=== PATIENT | female | born 1965 | race Caucasian/White ===

== ENCOUNTER → 2023-11-21 | Outpatient (CLI) | payer OTHER, SELFPAY ==
[2023-11-21 14:17] LABS: Absolute Lymphocyte Count 4.46 X10^3/uL (0.83-4.51); Absolute Neutrophil Count 4.3 X10^3/uL (2.0-7.7); Basophil# 0.04 X10^3/uL; Basophil% 0.4 % (0-1); Eosinophil# 0.24 X10^3/uL; Eosinophils% 2.5 % (0-5); Hematocrit 43.4 % (37-47); Hemoglobin 13.6 g/dL (12.0-15.0); Lymphocyte # 4.46 X10^3/ul (0.83-4.51); Lymphocyte % 45.6 % (19-41); Mean Corp Hgb Conc 31.3 g/dL (32-36); Mean Corpuscular Hgb 25.9 pg (27.0-32.0); Mean Corpuscular Volume 82.5 fL (81-99); Mean Platelet Vol. 9.8 fl (6.2-12.0); Monocyte# 0.68 X10^3/uL; NRBC Flagged by Analyzer 0 % (0-5); Neutrophil # 4.33 X10^3/uL (2.7-7.7); Neutrophil % 44.3 % (47-70); Platelet Count 271 K/mm3 (150-450); RBC Distribution Width CV 14.4 % (11.6-14.6); RBC Distribution Width SD 42.5 fl (35.1-43.9); Red Blood Count 5.26 M/mm3 (4.2-5.4); White Blood Count 9.8 K/mm3 (4.4-11.0)
[2023-11-21 14:41] LABS: Vitamin B12 1058 pg/mL (211-911)
[2023-11-21 14:43] LABS: ALB/GLOB Ratio 0.9 RATIO (0.9-2.4); AST(SGOT) 17 U/L (15-37); Alanine Aminotransfer ALT/SGPT 28 U/L (13-56); Albumin, Serum 3.6 g/dL (3.2-5.0); Alkaline Phosphatase 115 U/L (45-117); Anion Gap 8 (5-15); BUN 14 mg/dL (7-18); Calcium,Total 9.6 mg/dL (8.5-10.1); Chloride 107 mmol/L (98-107); Creatinine, Serum 0.74 mg/dL (0.55-1.02); EST Glomerular Filtration Rate 86 mL/min (>60); Est Glom Filt Rate - Afr Amer 104 mL/min (>60); Globulin 3.8 g/dL (2.2-4.2); Glucose 121 mg/dL (74-106); Potassium 3.3 mmol/L (3.5-5.1); Protein, Total 7.4 g/dL (6.4-8.2); Sodium Level 138 mmol/L (136-145)
[2023-11-25 15:08] LABS: Gastrin, Serum 158 pg/mL (0-115); Intrinsic Factor Ab 1.2 AU/mL (0.0-1.1)
== END | disposition home or self-care (01) ==
DX: R10.13 Epigastric pain (principal); K20.90 Esophagitis, unspecified without bleeding
CPT/HCPCS: 36415; 80053; 82607; 82941; 85025; 86340

== ENCOUNTER 2023-12-04 06:00 | Day surgery (SDC) | payer OTHER, SELFPAY ==
[2023-12-04] VITALS (9 sets, daily range): BP systolic 97–144; BP diastolic 54–86; PULSE 81–96; RESP 16; TEMP 36.4–36.7; O2SAT 95–98; BMI 44.6
--- NOTE | 2023-12-04 | GASB_PTH ---
PATIENT: FRANCIA JURADO LOC: EN U#:[id number] AGE/SX: 58/F ROOM: RE12/04/[address]: Dr. Laurent Pike DO : 1965 BED: DIS: 12/04/2023 SPEC #: [id number] RECD: 12/04/23 12:47 STATUS: KEE ALBA #: [id number] RIN: 12/04/23 00:[address]: Laurent Pike DEPT: SURGICAL PATHOLOGY RECD BY: Arun Thompson ENTERED: 12/04/23 12:47 SP TYPE: Gastric Bx OTHR DR: No Primary Care Phys Tissues: A - Gastric mucous membrane B - Duodenum, NOS C - Esophageal mucous membrane D - Ileum, NOS E - Sigmoid colon biopsy Procedures: Special Stain Group I Surgery Specimen Level IV Alcian Blue/PAS (control) HEADER OPERATION: Colonoscopy with biopsy, EGD with biopsy PRE-OP DIAGNOSIS: Esophagitis, dyspepsia TISSUE SUBMITTED: A- Gastric body biopsy, B- Duodenum biopsy, C- Distal esophagus biopsy, D- Terminal ileum biopsy, E- Sigmoid colon biopsy MICROSCOPIC DIAGNOSIS A. Gastric body, biopsy: Chronic gastritis. See comment. B. Duodenum, biopsy: No pathologic change. C. Distal esophagus, biopsy: Gastroesophageal junctional biopsy with mild chronic inflammation. No evidence of goblet cell metaplasia. See comment. D. Terminal ileum, biopsy: No pathologic change. E. Sigmoid colon, biopsy: Focal hyperplastic change. AM. 12/05/2023 COMMENT A. The results of immunohistochemistry for Helicobacter pylori will be reported separately ([id number]). C. Alcian blue/PAS stain with matched control is used in the evaluation of the specimen. MICROSCOPIC DESCRIPTION Slides are reviewed. GROSS DESCRIPTION A. Received in fixative is one container labeled with the patient's name and designated Gastric body biopsy. The specimen consists of multiple irregular fragments of light quiroz soft tissue that in aggregate measure 1.2 x 0.3 x 0.1 cm. The specimen is totally submitted in one cassette. B. Received in fixative is one container labeled with the patient's name and designated Duodenum biopsy. The specimen consists of two irregular fragments of light quiroz soft tissue that in aggregate measure 0.6 x 0.3 x 0.1 cm. The specimen is totally submitted in one cassette. C. Received in fixative is one container labeled with the patient's name and designated Distal esophagus biopsy. The specimen consists of multiple irregular fragments of light quiroz soft tissue that in aggregate measure 0.8 x 0.3 x 0.1 cm. The specimen is totally submitted in one cassette. D. Received in fixative is one container labeled with the patient's name and designated Terminal ileum biopsy. The specimen consists of multiple irregular fragments of light quiroz soft tissue that in aggregate measure 1.0 x 0.3 x 0.1 cm. The specimen is totally submitted in one cassette. E. Received in fixative is one container labeled with the patient's name and designated Sigmoid colon biopsy. The specimen consists of multiple irregular fragments of light quiroz soft tissue that in aggregate measure 1.0 x 0.3 x 0.1 cm. The specimen is totally submitted in one cassette. SJ 12/04/2023 TC:5 CPT:95910b6,97665
[2023-12-04] MEDS: Lactated Ringers 1,000 ML 15 ML IV (06:45)
--- NOTE | 2023-12-04 06:51 | PRE.ANES_ITS ---
ASA Classification* ASA Classification ASA Classification: 3 Assessment & Plan Anesthesia* Anesthesia Assessment Anesthesia Assessment: Discussed sedation and/or anesthesia options, risks, benefits, and alternatives with patient/parents/legal guardian/POA. Questions invited. The patient/parents/legal guardian/POA seems to understand and agrees to proceed with anesthesia plan. Reviewed the physical assessment, medical history, allergy history and patient home medications list prior to surgery/procedure/anesthetic and documented any changes. Performed airway and anesthesia risk assessments. Anesthesia Type Anesthesia Type: MAC (see written pre anesthesia record for full assessment) Anesthesia Focused Assessment* Temperature: 98.0 F Pulse Rate: 96 Blood Pressure: 144/86 Respiratory Rate: 16 Pulse Ox: 95 Airway Assessment Mouth opens: >3 cm Mallampati Score: II Focused Labs Anesthesia Preop lab: CBC WBC 9.8 K/mm3 (4.4-11.0) 11/21/23 13:07 RBC 5.26 M/mm3 (4.2-5.4) 11/21/23 13:07 Hgb 13.6 g/dL (12.0-15.0) 11/21/23 13:07 Hct 43.4 % (37-47) 11/21/23 13:07 Plt Count 271 K/mm3 (150-450) 11/21/23 13:07 CHEMISTRY Potassium 3.3 mmol/L (3.5-5.1) L 11/21/23 13:07 Sodium 138 mmol/L (136-145) 11/21/23 13:07 BUN 14 mg/dL (7-18) 11/21/23 13:07 Creatinine 0.74 mg/dL (0.55-1.02) 11/21/23 13:07 Glucose 121 mg/dL (74-106) H 11/21/23 13:07 COAG Pre-Assessment Diagnosis/Proposed Procedure Planned Operative Procedure(s): COLONOSCOPY/EGD Anesthesia History 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 When Was Last Pacemaker Check QUESTION #4 FULL TEXT: You/Your Family Experience fever (hyperthermia) with Anesthesia Last Oral Intake Last Oral intake: Last Oral Intake NPO since 00:00 12/04/23 06:33 Meds taken in AM with sips of No 12/04/23 06:33 water? Meds patient instructed to take am of surgery PONV PONV - charger operator helper: PONV - charger operator helper Female Yes 12/02/23 13:26 HX of Motion Sickness No 12/02/23 13:26 HX of N/V After Surgery No 12/02/23 13:26 Non-Smoker Yes 12/02/23 13:26 Duration of Surgery greater No 12/02/23 13:26 than 60 minutes Number of Risk Factors 2 12/02/23 13:26 PONV Score Moderate Risk 12/02/23 13:26 Height & Weight Height & Weight: Anesthesia: Height & Weight Height 5 ft 3 in 12/04/23 06:33 Weight: 114.3 kg 12/04/23 06:33 Body Mass Index (BMI) 44.6 12/04/23 06:33 Respiratory Assessment Respiratory Assessment - charger operator helper: Respiratory Tract Infection Hx - charger operator helper Hx Respiratory Tract Infection No 12/02/23 13:26 STOP Sleep Apnea STOP Sleep Apnea - charger operator helper: STOP Sleep Apnea - charger operator helper Hx Hypertension No 12/02/23 13:26 Hx Sleep Apnea No 12/02/23 13:26 CPAP BIPAP Do you snore loudly (louder No 12/02/23 13:26 than talking or can be heard Do you often feel tired/ No 12/02/23 13:26 fatigued/ sleepy during daytime? Has anyone observed you stop No 12/02/23 13:26 breathing during sleep? STOP Results Negative 12/02/23 13:26 QUESTION #5 FULL TEXT : Do you snore loudly (louder than talking or can be heard through closed doors)? 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 Specify any problems Hx of Preganancy in last 3 No 12/02/23 13:26 Months Nurse Filling Out Transfusion VCHRISTIN 12/02/23 13:26 & Questions: Date: 12/02/23 12/02/23 13:26 Time: 13:12/02/23 13:26 Patient unable to answer at this time (ie. confused, unrespo /Reproduction History /Reproductive History - charger operator helper: /Reproductive Hx- charger operator helper Hx Now No 12/02/23 13:26 Gestational Age (in weeks): EDC: Hx Hx Para Hx Section SAB No 12/02/23 13:26 Active Medications Active Medications: Current Medications Generic Name Dose Route Start Last Admin Trade Name Freq PRN Reason Stop Dose Admin Lactated Ringer's 1,000 mls @ 15 mls/hr 12/04/23 06:15 12/04/23 06:45 IV 15 mls/hr .Q48H NAREN Administration PFSH Medical History Wears glasses Post-menopausal History of hiatal hernia History of diverticulitis Gastric reflux Non-smoker Shortness of breath on exertion Chronic cough History of edema Hiatal hernia Home Medications ?Medication ?Instructions ?Recorded ?Last Taken ?Type omeprazole 20 mg capsule,delayed 20 mg PO BID 12/02/23 12/03/23 History release Allergy/AdvReac Type Severity Reaction Status Date / Time No Known Allergies Allergy Verified 12/02/23 13:19 Surgical History Hx of surgical procedure Social History Smoking Status: Never smoker alcohol intake: current alcohol intake frequency: a few times a month substance use type: does not use Review of Systems (Anesthesia) ROS Narrative System reviewed and no additional complaints, except as documented.
--- NOTE | 2023-12-04 07:00 | HP.PCM_ITS ---
History and Physical Date of Admission: 12/04/23 FRANCIA JURADO, is a 58 F who presents to the office today for establishment with [facility] having a history of GERD and prior polypectomy. She reports wanting to change GI providers due to feeling that previous provider was not thorough enough. Reports last EGD was in 2013 for complaints of heartburn; large hiatal hernia and esophagitis were found, she was started on omeprazole twice daily, weaned down to daily and then she took herself off of the PPI 2 years ago. States you're only supposed to take those for a couple of weeks. I don't want diarrhea or dementia, which are side effects of taking PPIs. She reports having her first colonoscopy in 2018 where they found diverticulosis and had at least one polyp removed, but is unsure of pathology other than it was non-cancerous. Current complaints include a cough of increasing frequency and mild dyspepsia. Requesting repeat EGD and colonoscopy. Denies nausea, abdominal pain or bloating. Reports daily BMs with complete evacuation, denies blood in stool and painful defecation. Reports mother has Dale's disease, hiatal hernia, and diverticulosis; brother had Dale's disease that developed into esophageal cancer. Denies allergies to foods, environment, or medications. Denies tobacco, illicit drug, and alcohol use. States UTD on juvenile vaccines, refusing boosters for influenza, pneumonia and Sars-COVID. Denies easy bleeding or bruising. Reports taking ibuprofen as needed, maybe twice a week. ROS Const Constitutional: No anorexia, body ache, chills, excessive sweating, fatigue, fever(s), frequent falls, headache(s), decreased energy, malaise, night sweats, snoring, weakness, weight change, sleep problems, abnormal sleep pattern, change in appetite or other Eyes Eyes: No change in vision ENT ENT: No abnormal hearing, headache(s) or difficulty swallowing Resp Respiratory: Positive for cough Cough: Yes non-productive and excessive phlegm production; No pain with cough or snoring Cardio Cardiology: No excessive sweating Gastro GI: Positive for heartburn, loose stools and nausea/dyspepsia; No abdominal pain, belching, bloating, change in bowel habits, change in stool character, coffee ground emesis, constipation, cramping, diarrhea, difficulty swallowing, feeling full early, excessive flatus, incontinent of stools, Vomiting blood/hematemesis, Blood in stool, Black,tarry stools, pain with swallowing or vomiting Genitourinary-Female: No difficulty urinating Musc Musculoskeletal: No abnormal gait Skin Skin: No yellowing of the eye or itchy eyes Neuro Neurology: No abnormal gait, abnormal hearing, weakness, frequent falls or headache(s) Psych Psychiatric: No abnormal sleep pattern and No change in appetite Endo Endocrine: No cold intolerance, excessive sweating, fatigue, heat intolerance, increased thirst/drinking or weight change Aller/Imm Allergy/Immunologic: No food intolerance or itchy eyes Todd/Lymp Hematologic/Lymphatic: No easy bleeding or easy bruising Exam Const General: cooperative Nutritional Appearance: obese Orientation: alert HENMT Head: normal to inspection Ears: hearing grossly normal bilaterally Nose: external nose normal Face and sinus: normal facial exam and face symmetric Eyes General: appearance normal, both eyes and all related structures Sclera: sclerae normal Neck Neck: normal visual inspection and full ROM Neck mass: No Chest Chest palpation & inspection: normal inspection of the chest Resp Effort & Inspection: normal respiratory effort, able to speak in complete sentences and symmetric chest movement GI Inspection: normal to inspection Auscultation: normal bowel sounds Palpation: soft and no hepatosplenomegaly Skin General: no rashes or lesions noted Neuro General: patient alert, patient awake and patient oriented x3 Cognition: normal cognition Speech: speech normal Gait: normal gait Extrem General: normal to inspection and full ROM Psych Appearance: well kempt Mental Status: mental status grossly normal Mood: congruent mood Affect: normal affect Speech and Movement: speech and movement normal Attitude: cooperative Thought Process: normal Judgment: judgment good Assessment and Plan Assessment and Plan (1) Esophagitis: Status: Acute (2) Dyspepsia: Status: Acute Plan: FRANCIA JURADO, is a 58 F who presents to the office today for establishment with [facility] having a history of GERD and prior polypectomy. She reports wanting to change GI providers due to feeling that previous provider was not thorough enough. Current complaints include a cough of increasing frequency and mild dyspepsia. Differential diagnoses include: esophagitis, Dale's disease, gastrititis, peptic ulcer, GERD. * order baseline bloodwork: CBC/d, CMP, gastrin, vitamin B12 levels * she prefers OTC omeprazole, instructed to take 20mg BID, stop 5 days prior to EGD * with ALARM sx of primary family member having esophageal cancer and Dale's disease, personal history of large hiatal hernia, order EGD * with history of polypectomy, order colonoscopy * extensive education provided regarding her concerns of risks vs. benefits from taking PPIs usp; discussed dementia, osteoporosis and cancer risks. * recommended tailoring diet to avoid high-fat and spicy foods, reducing caloric intake, and increasing physical activity * call results to patient Orders: Orders CBC W/Diff, Automated Today K20.90 - Esophagitis, unspecified without bleeding, R10.13 - Epigastric pain Comprehensive Metabolic Profil Today K20.90 - Esophagitis, unspecified without bleeding, R10.13 - Epigastric pain Intrinsic Factor Ab Today K20.90 - Esophagitis, unspecified without bleeding, R10.13 - Epigastric pain Vitamin B12 Today K20.90 - Esophagitis, unspecified without bleeding, R10.13 - Epigastric pain Gastrin, Serum Today K20.90 - Esophagitis, unspecified without bleeding, R10.13 - Epigastric pain I have examined the patient and the H&P has been reviewed. There are no clinical changes since date of exam.
--- NOTE | 2023-12-04 07:00 | IMM_PTH ---
PATIENT: FRANCIA JURADO LOC: EN U#:[id number] AGE/SX: 58/F ROOM: RE12/04/[address]: Dr. Laurent Pike DO : 1965 BED: DIS: 12/04/2023 SPEC #: [id number] RECD: 12/04/23 12:14 STATUS: KEE PARTH #: [id number] RIN: 12/04/23 07:[address]: Laurent Pike DEPT: IMMUNOHISTOCHEMISTRY RECD BY: Yovani Zohng ENTERED: 12/04/23 12:15 SP TYPE: IMMUNO OTHR DR: Sherron Primary Care Phys Tissues: A - Gastric mucous membrane Procedures: H Pylori (initial) PHYSICIAN & INSTITUTION [place] [id number] SPECIMEN INFORMATION: Tissue Source: A- Gastric body biopsy Clinical Info: Esophagitis, dyspepsia Specimen Number: [id number] CPT code: 60201 METHODOLOGY: Deparaffinized sections of prefer/formalin-fixed tissue or PAP/DQ stained slides are incubated with monoclonal/polyclonal antibodies/oligonucleotide probes. Localization is made via biotin free immunoperoxidase method. Appropriate controls are performed and reacted as expected. Results on target cell population are indicated in the following table: RESULTS: ANTIBODY / CLONE RESULT Block A H Pylori (polyclonal) negative These tests were developed and their performance characteristics determined by [facility]. They may not have been cleared or approved by the [place]. Food and Drug Administration. The FDA has determined that such clearance or approval is not necessary. The above immunohistochemical/dualISH markers are ordered and reviewed by the Pathologist. INTERPRETATION: A. Gastric body, biopsy: Negative for Helicobacter pylori organisms. 12/05/2023
--- NOTE | 2023-12-04 07:54 | OP.EGD_ITS ---
Patient Name: Shakira Stiles Procedure Date: 12/04/2023 7:15 AM Date of : 1965 Age: 58 Procedure: Upper GI endoscopy Indications: Epigastric abdominal pain, Suspected esophageal reflux Providers: Laurent Pike DO Medicines: Monitored Anesthesia Care Patient Profile: This is a 58 year old female. Refer to note in patient chart for documentation of history and physical. Patient has symptoms of chronic epigastric abdominal pain, chronic dyspepsia and chronic nausea. Complications: No immediate complications. Procedure: Pre-Anesthesia Assessment: - Prior to the procedure, a History and Physical was performed, and patient medications and allergies were reviewed. The patient is competent. The risks and benefits of the procedure and the sedation options and risks were discussed with the patient. All questions were answered and informed consent was obtained. Patient identification and proposed procedure were verified by the physician in the pre-procedure area. Mental Status Examination: alert and oriented. Airway Examination: normal oropharyngeal airway and neck mobility. Respiratory Examination: clear to auscultation. CV Examination: normal. Prophylactic Antibiotics: The patient does not require prophylactic antibiotics. Prior Anticoagulants: The patient has taken no anticoagulant or antiplatelet agents. ASA Grade Assessment: II - A patient with mild systemic disease. After reviewing the risks and benefits, the patient was deemed in satisfactory condition to undergo the procedure. The anesthesia plan was to use monitored anesthesia care (MAC). Immediately prior to administration of medications, the patient was re-assessed for adequacy to receive sedatives. The heart rate, respiratory rate, oxygen saturations, blood pressure, adequacy of pulmonary ventilation, and response to care were monitored throughout the procedure. The physical status of the patient was re-assessed after the procedure. After obtaining informed consent, the endoscope was passed under direct vision. Throughout the procedure, the patient's blood pressure, pulse, and oxygen saturations were monitored continuously. The Colonoscope was introduced through the mouth, and advanced to the second part of duodenum. The upper GI endoscopy was accomplished without difficulty. The patient tolerated the procedure well. Scope In: 7:29:39 AM Scope Out: 7:34:06 AM Total Procedure Duration Time 0 hours 4 minutes 27 seconds Findings: The Z-line was irregular and was found 40 cm from the incisors. Biopsies were taken with a cold forceps for histology. Verification of patient identification for the specimen was done. Estimated blood loss was minimal. Patchy mildly erythematous mucosa without bleeding was found in the gastric body. Biopsies were taken with a cold forceps for histology. Verification of patient identification for the specimen was done. Estimated blood loss was minimal. Biopsies were taken with a cold forceps for Helicobacter pylori testing. Verification of patient identification for the specimen was done. Estimated blood loss was minimal. No gross lesions were noted in the duodenal bulb and in the first portion of the duodenum. Biopsies were taken with a cold forceps for histology. Verification of patient identification for the specimen was done. Estimated blood loss was minimal. Impression: - Z-line irregular, 40 cm from the incisors. Biopsied. - Erythematous mucosa in the gastric body. Biopsied. - No gross lesions in the duodenal bulb and in the first portion of the duodenum. Biopsied. Recommendation: - Discharge patient to home. - Resume previous diet. - Continue present medications. - Await pathology results. Procedure Code(s): --- Professional --- 59810, Esophagogastroduodenoscopy, flexible, transoral; with biopsy, single or multiple CPT copyright 2021 [employer]. All rights reserved. The codes documented in this report are preliminary and upon saw maker review may be revised to meet current compliance requirements. Laurent Pike DO 12/04/2023 7:54:00 AM This report has been signed electronically. Number of Addenda: 0 Note Initiated On: 12/04/2023 7:15 AM
--- NOTE | 2023-12-04 07:58 | PCM.POST.ANE ---
Anesthesia: Postop Eval I Current Vital Signs Temperature: 97.6 F Pulse Rate: 92 Blood Pressure: 106/86 Respiratory Rate: 16 Pulse Ox: 98 Oxygen Delivery Method: Room Air Assessment Airway patent: Yes Spontaneous unlabored respirations: Yes Mental status: Awake nausea: No Vomiting: No Anesthesia Complication: No Fluid Hydration Crystalloid volume administer (ml): 800 Total IV fluid infused: 800 Progress Note Anesthesia document: Postop Eval 1 completed: Yes
--- NOTE | 2023-12-04 08:01 | OP.COLON_ITS ---
Patient Name: Shakira Stiles Procedure Date: 12/04/2023 7:34 AM Date of : 1965 Age: 58 Procedure: Colonoscopy Indications: Surveillance: Personal history of colonic polyps (unknown histology) on last colonoscopy more than 5 years ago Providers: Laurent Pike DO Medicines: Monitored Anesthesia Care Patient Profile: This is a 58 year old female. Refer to note in patient chart for documentation of history and physical. Patient has symptoms of chronic epigastric abdominal pain, chronic dyspepsia and chronic nausea. Last Colonoscopy: date unknown. Unable to locate last colonoscopy report. Last Colonoscopy: several years ago. Complications: No immediate complications. Procedure: Pre-Anesthesia Assessment: - Prior to the procedure, a History and Physical was performed, and patient medications and allergies were reviewed. The patient is competent. The risks and benefits of the procedure and the sedation options and risks were discussed with the patient. All questions were answered and informed consent was obtained. Patient identification and proposed procedure were verified by the physician in the pre-procedure area. Mental Status Examination: alert and oriented. Airway Examination: normal oropharyngeal airway and neck mobility. Respiratory Examination: clear to auscultation. CV Examination: normal. Prophylactic Antibiotics: The patient does not require prophylactic antibiotics. Prior Anticoagulants: The patient has taken no anticoagulant or antiplatelet agents. ASA Grade Assessment: II - A patient with mild systemic disease. After reviewing the risks and benefits, the patient was deemed in satisfactory condition to undergo the procedure. The anesthesia plan was to use monitored anesthesia care (MAC). Immediately prior to administration of medications, the patient was re-assessed for adequacy to receive sedatives. The heart rate, respiratory rate, oxygen saturations, blood pressure, adequacy of pulmonary ventilation, and response to care were monitored throughout the procedure. The physical status of the patient was re-assessed after the procedure. After I obtained informed consent, the scope was passed under direct vision. Throughout the procedure, the patient's blood pressure, pulse, and oxygen saturations were monitored continuously. The Colonoscope was introduced through the anus and advanced to the terminal ileum. The colonoscopy was performed without difficulty. The patient tolerated the procedure well. The quality of the bowel preparation was adequate. The terminal ileum, ileocecal valve, appendiceal orifice, and rectum were photographed. Scope In: 7:35:39 AM Scope Withdrawal Time 0 hours 8 minutes 40 seconds Scope Out: 7:47:35 AM Total Procedure Duration Time 0 hours 11 minutes 56 seconds Findings: The perianal and digital rectal examinations were normal. A few small-mouthed diverticula were found in the recto-sigmoid colon and sigmoid colon. A localized area of mildly erythematous mucosa was found in the sigmoid colon. Biopsies were taken with a cold forceps for histology. Verification of patient identification for the specimen was done. Estimated blood loss was minimal. The terminal ileum appeared normal. Biopsies were taken with a cold forceps for histology. Verification of patient identification for the specimen was done. Estimated blood loss was minimal. Impression: - Diverticulosis in the recto-sigmoid colon and in the sigmoid colon. - Erythematous mucosa in the sigmoid colon. Biopsied. - The examined portion of the ileum was normal. Biopsied. Recommendation: - Discharge patient to home. - Resume previous diet. - Continue present medications. - Await pathology results. - Repeat colonoscopy in 5 years for surveillance. Procedure Code(s): --- Professional --- 73624, Colonoscopy, flexible; with biopsy, single or multiple CPT copyright 2021 [employer]. All rights reserved. The codes documented in this report are preliminary and upon stator plate washer review may be revised to meet current compliance requirements. Laurent Pike DO 12/04/2023 8:01:12 AM This report has been signed electronically. Number of Addenda: 0 Note Initiated On: 12/04/2023 7:34 AM
--- NOTE | 2023-12-04 08:04 | PCM.POSTANE2 ---
Anesthesia Postop Eval I Sum Postop Eval Completion status Anesthesia document: Postop Eval 1 completed: Yes Anesthesia Postop Eval I Summary Anesthesia Postop Eval I Summary: Anesthesia Postop Eval I: Assessment Summary Airway patent Yes 12/04/23 07:59 [email or web address] Spontaneous unlabored Yes 12/04/23 07:59 [email or web address] respirations Mental status Awake 12/04/23 07:59 [email or web address] nausea No 12/04/23 07:59 [email or web address] Vomiting No 12/04/23 07:59 [email or web address] Anesthesia Postop Eval I: Fluid Summary Crystalloid volume administer 800 12/04/23 07:59 [email or web address] (ml) Colloids volume administered ( ml) Blood Product volume administered (ml) Total IV fluid infused 800 12/04/23 07:59 [email or web address] Anesthesia Postop Eval I: Summary Notes Anesthesia Complication No 12/04/23 07:59 [email or web address] Anesthesia Complication Comment: Post-operative progress note Anesthesia: Postop Eval II Evaluation Mental status: Awake Pain Level: 0 nausea: No Vomiting: No
== END 2023-12-04 08:37 | disposition home or self-care (01) ==
LOC: EN 06:06 → AC 06:06
PROVIDERS: Visit Provider Internal Medicine Gastroenterology
PROC: 0DJD8ZZ Inspection of Lower Intestinal Tract, Via Natural or Artificial Opening Endoscopic (ICD-10-PCS; CPT 45378; principal; 2023-12-04 06:55)
DX: Z12.11 Encounter for screening for malignant neoplasm of colon (principal); K29.50 Unspecified chronic gastritis without bleeding; K57.30 Diverticulosis of large intestine without perforation or abscess without bleeding; K21.00 Gastro-esophageal reflux disease with esophagitis, without bleeding; Z86.0100 Personal history of colon polyps, unspecified; Z79.899 Other long term (current) drug therapy; Z80.0 Family history of malignant neoplasm of digestive organs
CPT/HCPCS: 45380; 43239; 88305; 88312; 88342; J7120; J2405